=== PATIENT | male | born 1970 | race Caucasian/White ===

== ENCOUNTER 2017-05-07 18:22 | Inpatient (IN) | payer SELFPAY ==
[~2017-05-07] VITALS: Ht 162.6 cm; Wt 64.0 kg
[2017-05-07 18:27] VITALS: BP 122/95
--- NOTE | 2017-05-07 18:30 | NUR ---
Patient ambulated to bed 11. RN evaluating patient at bedside.
--- NOTE | 2017-05-07 18:32 | NUR ---
PT PRESENTS TO ER W/C/O SOB SINCE THIS AM AND C/O RIGHT HIP/LEG PAIN-NO FALL OR TRAUMA. HX HEART TRANSPLANT 2006 AT [place] [facility], PACEMAKER, HYPOTENSION. SKIN IS PINK/WARM/DRY; AAOX4 WITH EVEN AND STEADY GAIT; LUNGS CLEAR BL; PT DENIES ANY FEVER, CP, SOB, OR COUGH AT THIS TIME; PATIENT STATES PAIN OF 10/10 AT THIS TIME; PATIENT POSITIONED FOR COMFORT; HOB ELEVATED; BEDRAILS UP X2; BED DOWN. ER MD MADE AWARE OF PT STATUS.
--- NOTE | 2017-05-07 18:33 | NUR ---
Dr. Cevallos evaluating patient at bedside.
[2017-05-07] MEDS ORDERED: KETOROLAC 30 MG/ML VIAL IVP ONE (18:50)
--- NOTE | 2017-05-07 19:05 | NUR ---
Pt report given to ESPERANZA CASANOVA. Transfer of care at this time.
--- NOTE | 2017-05-07 19:08 | NUR ---
PLACED NO. 16 ECUADOREAN WU CATHETER WITH OUT DIFFICULTY IMMEDIATE RETURN OF SCANT YELLOW URINE.
--- NOTE | 2017-05-07 19:17 | NUR ---
Patient being evaluated by Dr. Vences at bedside.
--- NOTE | 2017-05-07 19:18 | NUR ---
Eboni gill in ED - 05/07/[address] at [address] Vences evaluating patient at bedside.
[2017-05-07 19:22] LABS: BASOPHILS # (AUTO) 0.3 K/uL (0.00-0.22); BASOPHILS % (AUTO) 2.9 % (0.0-2.0); EOSINOPHILS # (AUTO) 0.1 K/uL (0-0.4); EOSINOPHILS % (AUTO) 0.9 % (0.0-4.0); HEMATOCRIT 42.5 % (36-52); HEMOGLOBIN 14.4 g/dL (12.0-18.0); LYMPHOCYTES # (AUTO) 1.9 K/uL (2.0-11.5); LYMPHOCYTES % (AUTO) 21.8 % (20.5-51.1); MEAN CORPUSCULAR HEMOGLOBIN 30 pg (27-31); MEAN CORPUSCULAR HGB CONC 34 g/dL (33-37); MEAN CORPUSCULAR VOLUME 90 fL (80-94); MONOCYTES # (AUTO) 0.4 K/uL (0.8-1.0); MONOCYTES % (AUTO) 4.6 % (1.7-9.3); NEUTROPHILS # (AUTO) 6.1 K/uL (1.8-7.7); NEUTROPHILS % (AUTO) 69.8 % (42.2-75.2); PLATELET COUNT (AUTO) 118 K/uL (140-450); RED BLOOD CELL COUNT(AUTO) 4.72 MIL/uL (4.20-6.10); RED CELL DISTRIBUTION WIDTH 15.7 % (11.6-13.7); WHITE BLOOD COUNT (AUTO) 8.8 K/uL (4.8-10.8)
--- NOTE | 2017-05-07 19:22 | NUR ---
PT TAKEN TO CT VIA [facility].
[2017-05-07 19:32] LABS: ANION GAP 15.4 (8-16); CARBON DIOXIDE 26.4 mmol/L (21-32); CREATININE 1.9 mg/dL (0.7-1.3); POTASSIUM 3.8 mmol/L (3.5-5.1)
[2017-05-07 19:37] LABS: PROTHROMBIN TIME 10.9 secs (10.8-13.4)
[2017-05-07 19:38] LABS: TOTAL BILIRUBIN 0.8 mg/dL (0.0-1.0)
[2017-05-07] MEDS ORDERED: FURO-570 PO (19:59)
[2017-05-07] MEDS ORDERED: SULF-58 PO (19:59)
[2017-05-07] MEDS ORDERED: SIRO0.5T PO (19:59)
[2017-05-07] MEDS ORDERED: [UNRECOGNIZED DRUG - CODE] PO (19:59)
[2017-05-07] MEDS ORDERED: VAS2.5 PO (19:59)
[2017-05-07] MEDS ORDERED: PANT40EC PO (19:59)
[2017-05-07] MEDS ORDERED: ASPI81CT89 PO (19:59)
[2017-05-07] MEDS ORDERED: MYC10 PO (19:59)
[2017-05-07] MEDS ORDERED: ATOR40TA PO (19:59)
[2017-05-07] MEDS ORDERED: PRED5TAB7 PO (19:59)
[2017-05-07] MEDS ORDERED: CARV3.12 PO (19:59)
[2017-05-07] MEDS ORDERED: SAN25 PO (19:59)
[2017-05-07] MEDS ORDERED: [UNRECOGNIZED DRUG - CODE] PO (19:59)
--- NOTE | 2017-05-07 20:19 | NUR ---
PT IN BED WITH FAMILY AT BEDSIDE.
[2017-05-07] MEDS ORDERED: ASPIRIN 325 MG TAB PO ONE (20:20)
[2017-05-07 20:29] LABS: APPEARANCE,URINE CLEAR (CLEAR); BILIRUBIN,URINE NEGATIVE (NEGATIVE); BLOOD, URINE NEGATIVE (NEGATIVE); COLOR,URINE YELLOW (YELLOW); LEUKOCYTE ESTERASE ,URINE NEGATIVE (NEGATIVE); NITRITE, URINE NEGATIVE (NEGATIVE); UGLUCOSE NEGATIVE (NEGATIVE)
[2017-05-07] MEDS ORDERED: DOCUSATE SODIUM 100 MG GELCAP PO PRN (22:20)
[2017-05-07] MEDS ORDERED: ONDANSETRON 4 MG/2 ML VIAL IM/IVP PRN (22:20)
[2017-05-07] MEDS ORDERED: ACETAMINOPHEN 325 MG TAB PO PRN (22:20)
[2017-05-07] MEDS ORDERED: ASPIRIN 81 MG TAB.CHEW PO SCH (22:25)
[2017-05-07] MEDS ORDERED: NITROGLYCERIN 0.4 MG TAB SL PRN (22:25)
[2017-05-07] MEDS ORDERED: MORPHINE SULFATE 4 MG/ML SYR IVP ONE (22:35)
--- NOTE | 2017-05-07 22:56 | NUR ---
Patient will be admitted to care of TAMMY. Admited to TELE. Will go to [id number]. Belongings list completed. Report to
--- NOTE | 2017-05-07 23:00 | NUR ---
ADMITTED THIS 47 YEAR OLD MALE FROM ER PER ISAIAH WITH CC OF SOB AND RT HIP/LEG PAIN, ASSISTED TO BED, WITH RT LEG PAIN ON AMBULATION, ASSESSMENT DONE, VITAL SIGNS STABLE, NO SOB NOTED, STILL COMPLAINING OF RT LEG/HIP PAIN, MORPHINE GIVEN IN ER AT 2243 NOT WORKING, WILL CALL DR EVERETT, ORIENTED TO ROOM AND CALL LIGHT, SAFETY MEASURES IN PLACE, CALL LIGHT WITHIN REACH.
[2017-05-07 23:03] LABS: CHOL/HDL RATIO 3.6 (1-4.5); FREE T4 (FREE THYROXINE) 0.86 ng/dL (0.76-1.46); MAGNESIUM 1.3 mg/dL (1.8-2.4); PHOSPHORUS 3.8 mg/dL (2.5-4.9); THYROID STIMULATING HORMONE 8.69 uIU/mL (0.34-3.74)
[2017-05-07] MEDS: NACL 0.9% 1,000 ML IV SCH (23:14)
[2017-05-07 23:30] VITALS: BP 109/88
[2017-05-08] MEDS: HYDROcodone/APAP 7.5/325 MG 1 TAB PO PRN ×3 (00:42→18:10)
--- NOTE | 2017-05-08 00:45 | NUR ---
MEDICATED WITH NORCO FOR RT HIP/LEG PAIN, WILL REASSESS, MONITORED CLOSELY.
[2017-05-08] MEDS ORDERED: MAG SULF 2000 MG/WATER PREMIX 100 ML IV ONE (00:50)
--- NOTE | 2017-05-08 01:30 | NUR ---
MAG RIDER IVPB STARTED FOR MAG LEVEL OF 1.3, EDUCATION PROVIDED, PT VERBALIZED PAIN SUBSIDING, SANDWICH PROVIDED PER REQUEST, MONITORED CLOSELY.
--- NOTE | 2017-05-08 02:40 | NUR ---
ARTERIAL ULTRASOUND OF BLE DONE, TOLERATED, SCD'S APPLIED TO BLE ORDERED, MONITORED CLOSELY.
[2017-05-08] MEDS ORDERED: HEPARIN PER PHARMACY MC PRN (03:25)
[2017-05-08] MEDS ORDERED: hePARIN / DEXT 5% PREMIX 250 ML IV SCH ×2 (03:25→03:50)
[2017-05-08 04:00] VITALS: BP 99/77
--- NOTE | 2017-05-08 04:15 | NUR ---
HEPARIN 4,000 UNITS IVP BOLUS GIVEN, AND HEPARIN DRIP AT 800 UNITS/H STARTED, CALLED DR EVERETT TO ORDER PTT Q6H PER HEPARIN PROTOCOL, DENIES ANY PAIN, NO RESP DISTRESS NOTED, MONITORED CLOSELY.
--- NOTE | 2017-05-08 06:30 | NUR ---
SEEN PT SLEEPING, NO SIGNS OF DISTRESS, HEPARIN DRIP INFUSING AT 800 UNITS/H, MONITORED CLOSELY.
--- NOTE | 2017-05-08 06:40 | NUR ---
PATIENT HAS BEEN SCREENED AND CATEGORIZED MODERATE NUTRITION RISK. PATIENT WILL BE SEEN WITHIN 3-5 DAYS OF ADMISSION. 05/09/17-05/10/17 MARQUES CARTER MS, RDN Addendum: 05/09/17 at [address] CORRECTION TO DATE RANGE: 05/10/17 - 05/12/[address]
[2017-05-08 07:17] LABS: BASOPHILS # (AUTO) 0.2 K/uL (0.00-0.22); BASOPHILS % (AUTO) 1.9 % (0.0-2.0); EOSINOPHILS # (AUTO) 0.1 K/uL (0-0.4); HEMATOCRIT 41.4 % (36-52); LYMPHOCYTES # (AUTO) 1.5 K/uL (2.0-11.5); LYMPHOCYTES % (AUTO) 15.5 % (20.5-51.1); MEAN CORPUSCULAR HEMOGLOBIN 30 pg (27-31); MEAN CORPUSCULAR HGB CONC 34 g/dL (33-37); MEAN CORPUSCULAR VOLUME 89 fL (80-94); MONOCYTES # (AUTO) 1.2 K/uL (0.8-1.0); MONOCYTES % (AUTO) 11.9 % (1.7-9.3); NEUTROPHILS # (AUTO) 6.9 K/uL (1.8-7.7); NEUTROPHILS % (AUTO) 69.7 % (42.2-75.2); PLATELET COUNT (AUTO) 110 K/uL (140-450); RED BLOOD CELL COUNT(AUTO) 4.64 MIL/uL (4.20-6.10); RED CELL DISTRIBUTION WIDTH 15.9 % (11.6-13.7); WHITE BLOOD COUNT (AUTO) 9.9 K/uL (4.8-10.8)
--- NOTE | 2017-05-08 07:20 | NUR ---
PT AWAKE, DENIES ANY PAIN, REPORT GIVEN TO ESPERANZA MARIANO FOR CONTINUITY OF CARE.
--- NOTE | 2017-05-08 07:21 | NUR ---
RECEIVED REPORT FROM THE UNLOADER OPERATOR NURSE AT BEDSIDE FOR CONTINUITY OF CARE. PT IS AWAKE AND ORIENTED. PT V/S WITHIN NORMAL RANGE. DENIES PAIN AT THIS TIME. IV SITE AT R AC 22G NS INFUSING AT 60ML/HR, R HAND 22G INFUSING HEPARIN AT 800U. PT TOLERATING WELL. SKIN INTACT. BREATHING NORMAL. WU CATH IN PLACE, 150ML CLEAR YELLOW URINE IN BAG. SCD'S IN PLACE. REQUESTED MD TO ORDER ANOTHER PTT AT 1012 THEN Q6 THEREAFTER. WILL CONTINUE TO MONITOR PT.
[2017-05-08 07:29] LABS: ANION GAP 14.9 (8-16); CARBON DIOXIDE 23.8 mmol/L (21-32); POTASSIUM 3.7 mmol/L (3.5-5.1)
[2017-05-08 08:00] VITALS: BP 95/73
[2017-05-08] MEDS ORDERED: FUROSEMIDE 40 MG/4 ML VIAL IVP SCH (08:35)
[2017-05-08] MEDS ORDERED: ENALAPRIL 5 MG TAB PO SCH (09:00)
[2017-05-08] MEDS ORDERED: METOPROLOL 25 MG TAB PO SCH (09:00)
[2017-05-08] MEDS ORDERED: LISINOPRIL 10 MG TAB PO SCH (09:00)
[2017-05-08] MEDS ORDERED: FUROSEMIDE 40 MG TAB PO SCH (09:00)
[2017-05-08] MEDS: ASPIRIN 81 MG TAB.CHEW PO SCH (09:04)
[2017-05-08] MEDS: CARVEDILOL 3.125 MG TAB PO SCH (09:04)
[2017-05-08] MEDS: ATORVASTATIN 20 MG TAB PO SCH (09:04)
[2017-05-08] MEDS: TAMSULOSIN 0.4 MG CAP PO SCH (09:05)
[2017-05-08] MEDS: predniSONE 5 MG TAB PO SCH (09:05)
[2017-05-08] MEDS: CALCIUM CARB/VIT-D 500 MG/200 IU 1 TAB PO SCH (09:05)
[2017-05-08] MEDS: PANTOPRAZOLE 40 MG TABEC PO SCH (09:06)
[2017-05-08] MEDS: cycloSPORINE (MODIFIED) 25 MG CAPLF PO SCH (09:07)
--- NOTE | 2017-05-08 09:10 | NUR ---
ADMINISTERED MORNING MEDS. HELD BP MEDS D/T DECREASED BP. PT TOLERATED WELL. NO COMPLAINTS AT THIS TIME. WILL CONTINUE TO MONITOR PT.
--- NOTE | 2017-05-08 10:24 | NUR ---
US TECH HERE FOR VENOUS DOPPLER STUDY.
--- NOTE | 2017-05-08 10:25 | NUR ---
ORDER FOR D/C HEPARIN PER DR. YU . HEPARIN D/C'D.
--- NOTE | 2017-05-08 11:38 | NUR ---
DR. CHAO, DR. PRICE IN WITH THE PT. DISCUSSED THE REASON FOR THE PAIN IN HIS R LEG. NEED TO CONTACT HIS TRANSPLANT CLINIC. PER PT, CALL HIS SON AND HE CAN GIVE US INFORMATION RE CLINIC AND SURGEON. DR PRICE WILL CONTACT AND LET THE CLINIC KNOW WHAT'S GOING ON WITH PT AND SEE IF THEY HAVE ANY RECOMMENDATION FOR THIS PT. MEANWHILE, WE WILL CONTINUE W/ ASPIRIN AND STATINS. WILL CONTINUE TO MONITOR PT.
--- NOTE | 2017-05-08 11:59 | NUR ---
LAB CALLED WITH PTT RESULTS. 57.3. HEPARIN HAS BEEN D/C'D. CHECKED ON PT. NO SIGNS OR SX OF BLEEDING NOTED.
[2017-05-08 12:00] VITALS: BP 93/67
--- NOTE | 2017-05-08 12:29 | NUR ---
BP LOW 93/67. NOTIFIED DR CHAO AND ALBERT. OK TO HOLD LASIX.
[2017-05-08] MEDS: NACL 0.9% 1,000 ML IV SCH ×2 (14:57→22:22)
--- NOTE | 2017-05-08 16:00 | NUR ---
PT RESTING COMFORTABLY. NO SIGNS OF DISTRESS. V/S WITHIN NORMAL RANGE. WILL CONTINUE TO MONITOR PT.
[2017-05-08 16:11] VITALS: BP 85/53
--- NOTE | 2017-05-08 19:10 | NUR ---
ENDORSED PT TO THE WEIGHT LOSS SALES CONSULTANT NURSE AT BEDSIDE FOR CONTINUITY OF CARE. PT IS IN PAIN. NORCO HASN'T HELPED YET. ENDORSED THE KPAD TO USE AT BEDTIME. IT IS AT BEDSIDE. PT IN STABLE CONDITION.
--- NOTE | 2017-05-08 19:12 | NUR ---
RECEIVED PT ON BED, STILL WITH RT LEG/HIP PAIN, NO SOB NOTED, IVF RESUMED, K-PAD APPLIED TO RT LEG, WILL REASSESS EFFECTIVENESS, PLAN OF CARE DISCUSS, SAFETY MEASURES IN PLACE, CALL LIGHT WITHIN REACH.
[2017-05-08] MEDS: MORPHINE SULFATE 2 MG/ML SYR IVP PRN ×2 (19:26→23:18)
--- NOTE | 2017-05-08 19:27 | NUR ---
PT STILL IN SEVERE PAIN, VITAL SIGNS STABLE, BP-113/84, HR-116, MEDICATED PRN WITH MORPHINE IVP, MONITORED CLOSELY.
[2017-05-08 20:00] VITALS: BP 104/68
--- NOTE | 2017-05-08 20:00 | NUR ---
PT VERBALIZED PAIN SUBSIDING 09/27, VITAL SIGNS TAKEN, BP-104/68, HR-115, IVF INFUSING WELL, MONITORED CLOSELY.
--- NOTE | 2017-05-08 20:55 | NUR ---
DR EVERETT MADE AWARE THAT THERE IS A ONE TIME DOSE OF LASIX 20MG IVP AT 2100, BP-104/68, HR-115, SHE WILL LOOK INTO IT AND GET BACK TO ME, PT SLEEPING AT THIS TIME, NO DISTRESS NOTED.
[2017-05-08] MEDS ORDERED: FUROSEMIDE 20 MG/2 ML VIAL IVP SCH (21:00)
[2017-05-08] MEDS ORDERED: SIMVASTATIN 20 MG TAB PO SCH (21:00)
[2017-05-08 21:40] VITALS: BP 91/69
--- NOTE | 2017-05-08 21:40 | NUR ---
DR EVERETT CALLED BACK AND SAID TO GIVE LASIX 20MG IVP ONE TIME DOSE SINCE BP WENT UP, BP RECHECKED BEFORE GIVING THE LASIX 91/69 HR-118, DR EVERETT MADE AWARE, ASKING FOR MAP WHICH IS 80, SAID IT'S SYBIL TO GIVE LASIX.
--- NOTE | 2017-05-08 21:47 | NUR ---
DR EVERETT CALLED BACK AND SAID DON'T GIVE THE LASIX, LASIX HOLD FOR NOW, PT EATING DINNER AT THIS TIME, NO DISTRESS NOTED, MONITORED CLOSELY.
[2017-05-09] VITALS: BP 108/71
--- NOTE | 2017-05-09 | NUR ---
PT SEEN WITH EYES CLOSED, EASILY AROUSABLE, VITAL SIGNS STABLE, NO SOB NOTED, VERBALIZED RT LEG PAIN SUBSIDING, IVF INFUSING WELL, WU CATHETER DRAINING YELLOW URINE,
[2017-05-09] MEDS: HYDROcodone/APAP 7.5/325 MG 1 TAB PO PRN ×4 (01:56→20:55)
--- NOTE | 2017-05-09 01:56 | NUR ---
COMPLAINING OF RT LEG PAIN, MEDICATED WITH NORCO, MONITORED CLOSELY.
[2017-05-09] MEDS: MORPHINE SULFATE 2 MG/ML SYR IVP PRN ×3 (03:30→09:42)
--- NOTE | 2017-05-09 03:30 | NUR ---
PAIN UNRELIEVED BY NORCO, 9/10 PAIN LEVEL AT THIS TIME, BP-107/75, HR-119, MEDICATED PRN WITH MORPHINE IVP, MONITORED CLOSELY.
[2017-05-09 04:00] VITALS: BP 105/79
--- NOTE | 2017-05-09 05:16 | NUR ---
PT SEEN GRIMACING, WITH RT LEG PAIN 01/27, BP-106/79, HR-120, DR EVERETT MADE AWARE, WILL FOLLOW UP.
--- NOTE | 2017-05-09 06:28 | NUR ---
COMPLAINING OF RT LEG PAIN 03/29, BP-112/85. HR-122, MEDICATED PRN WITH MORPHINE IVP, MONITORED CLOSELY.
[2017-05-09 06:57] LABS: BASOPHILS # (AUTO) 0.2 K/uL (0.00-0.22); BASOPHILS % (AUTO) 1.6 % (0.0-2.0); EOSINOPHILS # (AUTO) 0.1 K/uL (0-0.4); EOSINOPHILS % (AUTO) 0.8 % (0.0-4.0); HEMATOCRIT 44.1 % (36-52); HEMOGLOBIN 14.7 g/dL (12.0-18.0); LYMPHOCYTES # (AUTO) 1.7 K/uL (2.0-11.5); LYMPHOCYTES % (AUTO) 14.8 % (20.5-51.1); MEAN CORPUSCULAR HEMOGLOBIN 30 pg (27-31); MEAN CORPUSCULAR HGB CONC 33 g/dL (33-37); MEAN CORPUSCULAR VOLUME 90 fL (80-94); MONOCYTES # (AUTO) 1.2 K/uL (0.8-1.0); MONOCYTES % (AUTO) 10.7 % (1.7-9.3); NEUTROPHILS # (AUTO) 8.2 K/uL (1.8-7.7); NEUTROPHILS % (AUTO) 72.1 % (42.2-75.2); PLATELET COUNT (AUTO) 109 K/uL (140-450); RED BLOOD CELL COUNT(AUTO) 4.89 MIL/uL (4.20-6.10); RED CELL DISTRIBUTION WIDTH 15.7 % (11.6-13.7); WHITE BLOOD COUNT (AUTO) 11.4 K/uL (4.8-10.8)
--- NOTE | 2017-05-09 07:15 | NUR ---
RECEIVED PATIENT REPORT AT BEDSIDE. PATIENT AWAKE, ALERT AND ORIENTED. PATIENT REPORTS OF 10/10 RIGHT LEG PAIN. WILL MEDICATE. IV LINE NOTED TO THE RIGHT HAND WITH IVF INFUSING WELL. PATIENT ON TELE MONITORING. BED LOWERED WITH CALL LIGHT WITHIN REACH. WILL CONTINUE TO MONITOR
--- NOTE | 2017-05-09 07:21 | NUR ---
PT AWAKE, STILL IN PAIN, REPORT GIVEN TO ESPERANZA URBAN FOR CONTINUITY OF CARE.
[2017-05-09 07:25] LABS: ANION GAP 18.1 (8-16); CARBON DIOXIDE 20.4 mmol/L (21-32); CREATININE 1.6 mg/dL (0.7-1.3); POTASSIUM 4.5 mmol/L (3.5-5.1)
[2017-05-09 07:31] LABS: MAGNESIUM 2.2 mg/dL (1.8-2.4); PHOSPHORUS 3.7 mg/dL (2.5-4.9)
[2017-05-09] MEDS: NACL 0.9% 1,000 ML IV SCH ×2 (07:37→16:17)
[2017-05-09 07:53] VITALS: BP 120/84
[2017-05-09] MEDS ORDERED: HEPARIN PER PHARMACY MC PRN (08:05)
[2017-05-09] MEDS: TAMSULOSIN 0.4 MG CAP PO SCH (08:10)
[2017-05-09] MEDS: cycloSPORINE (MODIFIED) 25 MG CAPLF PO SCH (08:10)
[2017-05-09] MEDS: CALCIUM CARB/VIT-D 500 MG/200 IU 1 TAB PO SCH (08:10)
[2017-05-09] MEDS: ATORVASTATIN 20 MG TAB PO SCH (08:11)
[2017-05-09] MEDS: PANTOPRAZOLE 40 MG TABEC PO SCH (08:11)
[2017-05-09] MEDS: CARVEDILOL 3.125 MG TAB PO SCH (08:11)
[2017-05-09] MEDS: ASPIRIN 81 MG TAB.CHEW PO SCH (08:11)
[2017-05-09] MEDS: predniSONE 5 MG TAB PO SCH (08:12)
[2017-05-09] MEDS: hePARIN / DEXT 5% PREMIX 250 ML IV SCH (10:33)
--- NOTE | 2017-05-09 10:50 | NUR ---
PATIENT LEFT FOR CT ANGIO OF LOWER EXTREMITIES
[2017-05-09] MEDS ORDERED: HYDROmorphone 1 MG/ML AMP IVP PRN (11:40)
[2017-05-09 12:00] VITALS: BP 128/96
--- NOTE | 2017-05-09 12:57 | NUR ---
CT ANGIO OF LOWER EXTREMITIES RESULTS REPORTED TO DR MILES
--- NOTE | 2017-05-09 14:42 | NUR ---
CM NOTE FAXED INQUIRY INCLUDING ATTENDING PHYSICIAN'S CONTACT NUMBER AND NUMBER TO THE CHARGE NURSE TO THE NURSING FLOOR WHERE PATIENT IS TO [facility] [phone] PH# [phone] AND TO [facility] [phone] SPOKE TO TAZ OF [facility] PH# [phone] AND HE SAID THEY NEED A DOCTOR TO DOCTOR REPORT BEFORE THEY CAN ACCEPT. DR. MILES AND DR. Solis MIRANDA AWARE. RECEIVED CALL FROM BRITT OF [facility] PH# [phone] AND SHE SAID THEY ARE STILL WORKING TO SPEAK WITH THEIR DOCTOR IF THEY CAN ACCEPT. CHARGE NURSE AIME GAONA.
[2017-05-09 16:00] VITALS: BP 124/87
[2017-05-09] MEDS: HYDROmorphone PFS 2 MG/ML SYR IVP PRN ×3 (16:17→22:29)
[2017-05-09 16:33] LABS: BASOPHILS # (AUTO) 0.1 K/uL (0.00-0.22); BASOPHILS % (AUTO) 0.9 % (0.0-2.0); EOSINOPHILS % (AUTO) 0.2 % (0.0-4.0); HEMATOCRIT 45.2 % (36-52); HEMOGLOBIN 14.8 g/dL (12.0-18.0); LYMPHOCYTES # (AUTO) 0.6 K/uL (2.0-11.5); MEAN CORPUSCULAR HEMOGLOBIN 30 pg (27-31); MEAN CORPUSCULAR HGB CONC 33 g/dL (33-37); MEAN CORPUSCULAR VOLUME 90 fL (80-94); MONOCYTES # (AUTO) 0.8 K/uL (0.8-1.0); MONOCYTES % (AUTO) 6.1 % (1.7-9.3); NEUTROPHILS # (AUTO) 12.4 K/uL (1.8-7.7); NEUTROPHILS % (AUTO) 88.8 % (42.2-75.2); PLATELET COUNT (AUTO) 122 K/uL (140-450); RED BLOOD CELL COUNT(AUTO) 5.01 MIL/uL (4.20-6.10); RED CELL DISTRIBUTION WIDTH 16.3 % (11.6-13.7); WHITE BLOOD COUNT (AUTO) 13.9 K/uL (4.8-10.8)
[2017-05-09 16:36] LABS: PROTHROMBIN TIME 11.4 secs (10.8-13.4)
--- NOTE | 2017-05-09 16:53 | NUR ---
PTT 84.8. HEP DRIP ADJUSTED PER PROTOCOL
--- NOTE | 2017-05-09 19:28 | NUR ---
PATIENT REPORT GIVEN AT BEDSIDE. PATIENT ENDORSED IN STABLE CONDITION
--- NOTE | 2017-05-09 19:29 | NUR ---
PATIENT REPORT RECEIVED FROM MORNING NURSE AT BEDSIDE. PATIENT IS AWAKE, ALERT, AND ORIENTED. NO SIGNS AND SYMPTOMS OF DISTRESS NOTED. PATIENT ON ROOM AIR. IV SITE ON RIGHT ARM WITH HEPARIN DRIP RUNNING ON 700 UNITS/HR. IV SITE NOTED ON LEFT AC, WITH IVF NS RUNNING AT 60ML/HR. WU CATHETER IN PLACE DRAINING YELLOW URINE. AND K PAD BEING USED ON LOWER EXTREMETIES. BED IN LOWEST POSITION, SIDE RAILS UP AND CALL LIGHT WITHIN REACH. WILL CONTINUE TO MONITOR.
[2017-05-09 20:00] VITALS: BP 114/82
--- NOTE | 2017-05-09 20:47 | NUR ---
TRIED TO FAX COPY OF INSURANCE TO [facility] FAX #[phone].BUT NO RESPONDS.CALLED MELINA AT [phone] OPTION 3.SHE SAID OUR FAX IS OK BUT ASKED ME THE INSURANCE #.GAVE IT TO HER.SHE SUPPOSE TO CHECK HIS INSURANCE AND CALLED ME BACK.SHE DIDN'T CALL BACK.AT 2030 CALLED HER BACK AND SHE SAID .PT'S INSURANCE IS ON HOLD FOR SOME REASON AND WE CAN NOT TRANSFER PT NOW.LEFT MESSAGE FOR MORNING SHOW HOST TO F/U IN AM.ALSO NOTIFY RESIDENT .
--- NOTE | 2017-05-09 23:20 | NUR ---
PTT 58.8. PER HEPARIN DRIP PROTOCOL, NO CHANGE. WILL CONTINUE TO RUN AT 700UNITS/HR
--- NOTE | 2017-05-09 23:54 | NUR ---
[facility] CALLED REGARDING PATIENT TRANSFER. THEY SAID THAT THEY DO NOT HAVE A ROOM FOR TONIGHT. BUT THEY WILL CALL AGAIN TO FOLLOW UP TOMORROW.
[2017-05-10] VITALS: BP 109/83
--- NOTE | 2017-05-10 00:19 | NUR ---
CHECKED ON PATIENT. PATIENT IS ASLEEP. NO SIGNS AND SYMPTOMS OF DISTRESS NOTED. BREATHING EVEN AND UNLABORED. BED IN LOWEST POSITION, SIDE RAILS UP AND CALL LIGHT WITHIN REACH. WILL CONTINUE TO MONITOR.
[2017-05-10] MEDS: HYDROmorphone PFS 2 MG/ML SYR IVP PRN ×2 (01:38→06:15)
--- NOTE | 2017-05-10 02:16 | NUR ---
CHECKED ON PATIENT. PATIENT IS ASLEEP. NO SIGNS AND SYMPTOMS OF DISTRESS NOTED. BED IN LOWEST POSITION, SIDE RAILS UP AND CALL LIGHT WITHIN REACH. WILL CONTINUE TO MONITOR.
--- NOTE | 2017-05-10 03:42 | NUR ---
PATIENT STATED THAT HE "ACCIDENTALLY PULLED OUT" IV SITE. CANNULA IS INTACT. NEW IV SITE INSERTED ON LEFT FOREARM, 22 GAUGE.
[2017-05-10 04:00] VITALS: BP 104/76
--- NOTE | 2017-05-10 05:00 | NUR ---
PTT IS 27.6. HEPARIN PROTOCOL FOLLOWED, BOLUS GIVEN ORDERED. HEPARIN DRIP ADJUSTED TO 1000 UNITS/HR
[2017-05-10] MEDS: hePARIN / DEXT 5% PREMIX 250 ML IV SCH ×3 (05:05→14:45)
[2017-05-10 05:12] LABS: BASOPHILS # (AUTO) 0.1 K/uL (0.00-0.22); BASOPHILS % (AUTO) 0.9 % (0.0-2.0); EOSINOPHILS # (AUTO) 0.1 K/uL (0-0.4); EOSINOPHILS % (AUTO) 0.5 % (0.0-4.0); HEMATOCRIT 46.1 % (36-52); LYMPHOCYTES # (AUTO) 1.2 K/uL (2.0-11.5); LYMPHOCYTES % (AUTO) 8.8 % (20.5-51.1); MEAN CORPUSCULAR HEMOGLOBIN 30 pg (27-31); MEAN CORPUSCULAR HGB CONC 33 g/dL (33-37); MEAN CORPUSCULAR VOLUME 91 fL (80-94); MONOCYTES # (AUTO) 1.8 K/uL (0.8-1.0); MONOCYTES % (AUTO) 13.5 % (1.7-9.3); NEUTROPHILS # (AUTO) 10.2 K/uL (1.8-7.7); NEUTROPHILS % (AUTO) 76.3 % (42.2-75.2); PLATELET COUNT (AUTO) 117 K/uL (140-450); RED BLOOD CELL COUNT(AUTO) 5.09 MIL/uL (4.20-6.10); RED CELL DISTRIBUTION WIDTH 16.7 % (11.6-13.7); WHITE BLOOD COUNT (AUTO) 13.4 K/uL (4.8-10.8)
[2017-05-10 06:37] LABS: CREATININE 1.5 mg/dL (0.7-1.3)
[2017-05-10 06:43] LABS: POTASSIUM 5.5 mmol/L (3.5-5.1)
[2017-05-10 06:46] LABS: MAGNESIUM 2.3 mg/dL (1.8-2.4); PHOSPHORUS 4.3 mg/dL (2.5-4.9)
[2017-05-10 07:08] LABS: ANION GAP 19.5 (8-16)
--- NOTE | 2017-05-10 07:14 | NUR ---
PATIENT REPORT GIVEN TO MORNING NURSE. PATIENT IS IN STABLE CONDITION
--- NOTE | 2017-05-10 07:15 | NUR ---
RECEIVED PATIENT REPORT AT BEDSIDE. PATIENT AWAKE AND ALERT. NO SOB NOTED. PATIENT REPORTS 10/10 PAIN ON HIS RIGHT LEG. PATIENT WAS MEDICATED WILL CONTINUE TO MONITOR. HEPARIN DRIP RUNNING AT 1000UNITS/HR ON THE LEFT FOREARM, IVF INFUSING WELL ON THE LEFT AC. WU CATHETER IN PLACE, DRAINING LIGHT MARY URINE. PATIENT ON TELE MONITORING. BED LOWERED WITH CALL LIGHT WITHIN REACH. WILL CONTINUE TO MONITOR
[2017-05-10 08:00] VITALS: BP 111/83
--- NOTE | 2017-05-10 08:43 | NUR ---
CM CARTER SPOKE WITH SALES ORDER PROCESSOR NELDA TO VERIFY PATIENT'S INSURANCE AND SHE SAID PATIENT'S MEDI-REG IS ON HOLD AND PATIENT IS CURRENTLY SELF-PAY. PER NELDA, SHE WILL NOTIFY NANDINI TO WORK ON PATIENT'S MEDI-REG.
[2017-05-10] MEDS: ATORVASTATIN 20 MG TAB PO SCH (08:46)
[2017-05-10] MEDS: ASPIRIN 81 MG TAB.CHEW PO SCH (08:47)
[2017-05-10] MEDS: CALCIUM CARB/VIT-D 500 MG/200 IU 1 TAB PO SCH (08:47)
[2017-05-10] MEDS: TAMSULOSIN 0.4 MG CAP PO SCH (08:47)
[2017-05-10] MEDS: HYDROcodone/APAP 7.5/325 MG 1 TAB PO PRN (08:47)
[2017-05-10] MEDS: cycloSPORINE (MODIFIED) 25 MG CAPLF PO SCH (08:48)
[2017-05-10] MEDS: predniSONE 5 MG TAB PO SCH (08:48)
[2017-05-10] MEDS: CARVEDILOL 3.125 MG TAB PO SCH (08:48)
[2017-05-10] MEDS: NACL 0.9% 1,000 ML IV SCH (08:48)
[2017-05-10] MEDS: PANTOPRAZOLE 40 MG TABEC PO SCH (08:48)
--- NOTE | 2017-05-10 09:13 | NUR ---
CM NOTE RECEIVED CALL FROM JUANIS OF [facility] PH# [phone] AND HE WAS CONFIRMING IF PATIENT'S MEDI-REG IS NOT ACTIVE. I INFORMED HIM THAT OUR LOLLYPOP MACHINE OPERATOR HAS CONTACTED OUR MEDI-REG BARNWORKER GRO[employer] AND IS WORKING ON GETTING PATIENT'S MEDI-REG REINSTATED. PER JUANIS, NO BED AVAILABLE AT THIS TIME.
[2017-05-10] MEDS: HYDROmorphone PFS 4 MG/ML SYR IVP PRN ×3 (10:08→23:26)
[2017-05-10 12:00] VITALS: BP 118/77
--- NOTE | 2017-05-10 13:35 | NUR ---
PTT 109.4. HEPARIN DRIP STOPPED
--- NOTE | 2017-05-10 13:38 | NUR ---
PATIENT ASLEEP IN BED. NO S/S OF DISTRESS NOTED
--- NOTE | 2017-05-10 13:55 | NUR ---
CM NOTE SPOKE WITH MELINA Hernandez OF [facility] PH# [phone] OPTION 3. I INFORMED MELINA THAT OUR [facility] MAKER IS WORKING ON REINSTATING PATIENT'S MEDI-REG. PER MELINA, [facility] DOES NOT TAKE [facility] MEDI-REG AND IF PATIENT'S MEDI-REG GETS REINSTATED, [facility] WOULD NEED A LETTER OF AGREEMENT FROM [facility] SENT TO [facility] OFFICE: GEORGE RIVAS PH# [phone]. INQUIRY FAXED TO [facility] [phone]. SPOKE WITH COLBY OF [facility] PH# [phone] AND SHE SAID THAT NO BEDS AVAILABLE AT THIS TIME. DR. MILES AWARE.
--- NOTE | 2017-05-10 14:45 | NUR ---
HEPARIN DRIP RESUMED AT 800UNITS/HR. PATIENT ASLEEP. NO S/S OF DISTRESS NOTED
[2017-05-10 16:00] VITALS: BP 101/76
--- NOTE | 2017-05-10 19:00 | NUR ---
PATIENT REPORT GIVEN AT BEDSIDE. PATIENT ENDORSED IN STABLE CONDITION
--- NOTE | 2017-05-10 19:05 | NUR ---
PATIENT REPORT RECEIVED AT BEDSIDE FROM MORNING NURSE. PATIENT IS AWAKE, ALERT, AND ORIENTED. NO SIGNS AND SYMPTOMS OF DISTRESS NOTED. NO COMPLAINTS OF PAIN AT THIS TIME. IV SITE NOTED ON LEFT FOREARM, WITH HEPARIN DRIP CONTINUOUSLY RUNNING AT 800 UNITS/HR. IV SITE LEFT AC WITH NS RUNNING AT 60ML/HR. WU CATHETER IN PLACE. BED IN LOWEST POSITION, SIDE RAILS UP AND CALL LIGHT WITHIN REACH. WILL CONTINUE TO MONITOR.
[2017-05-10] MEDS ORDERED: SODIUM POLYSTYRENE 15 GM/60 ML UDBTL PO SCH (19:20)
[2017-05-10 20:00] VITALS: BP 101/75
--- NOTE | 2017-05-10 20:20 | NUR ---
PTT 54.6. PER HEPARIN DRIP PROTOCOL, NO CHANGE TO RATE. HEPARIN DRIP TO CONTINUE AT 800 UNITS/HR.
[2017-05-10 20:28] LABS: PROTHROMBIN TIME 13.2 secs (10.8-13.4)
--- NOTE | 2017-05-10 22:01 | NUR ---
PT SEEN BY DR. XIONG
[2017-05-11] VITALS (7 sets, daily range): BP systolic 98–123; BP diastolic 68–86
--- NOTE | 2017-05-11 02:20 | NUR ---
PATIENT'S PTT IS 53.8. PER HEPARIN DRIP PROTOCOL, NO CHANGE TO RATE. WILL CONTINUE AT 800 UNITS/HOUR.
[2017-05-11] MEDS: HYDROmorphone PFS 4 MG/ML SYR IVP PRN ×6 (02:32→21:47)
--- NOTE | 2017-05-11 07:15 | NUR ---
RECEIVED PATIENT REPORT AT BEDSIDE. PATIENT AWAKE, ALERT AND ORIENTED. NO S/S OF DISTRESS NOTED. HEPARIN DRIP INFUSING AT 800 UNITS/HR. PATIENT REPORTS OF 10/10 RIGHT LEG PAIN. PATIENT WAS MEDICATED. WILL CONTINUE TO MONITOR. WU CATHETER IN PLACE, DRAINING DARK URINE. PATIENT ON TELE MONITORING. BED LOWERED WITH CALL LIGHT WITHIN REACH. WILL CONTINUE TO MONITOR
--- NOTE | 2017-05-11 07:16 | NUR ---
PATIENT REPORT GIVEN TO MORNING NURSE AT BEDSIDE. PATIENT IS IN STABLE CONDITION.
[2017-05-11 07:26] LABS: CARBON DIOXIDE 24.5 mmol/L (21-32); CREATININE 1.3 mg/dL (0.7-1.3); POTASSIUM 4.5 mmol/L (3.5-5.1)
[2017-05-11 07:42] LABS: MAGNESIUM 2.1 mg/dL (1.8-2.4); PHOSPHORUS 2.8 mg/dL (2.5-4.9)
[2017-05-11 07:43] LABS: HEMATOCRIT 44.1 % (36-52); MEAN CORPUSCULAR HEMOGLOBIN 31 pg (27-31); MEAN CORPUSCULAR VOLUME 92 fL (80-94); RED BLOOD CELL COUNT(AUTO) 4.82 MIL/uL (4.20-6.10); WHITE BLOOD COUNT (AUTO) 13.1 K/uL (4.8-10.8)
[2017-05-11 07:44] LABS: BASOPHILS % (AUTO) 0.2 % (0.0-2.0); EOSINOPHILS % (AUTO) 0.2 % (0.0-4.0); LYMPHOCYTES # (AUTO) 1.4 K/uL (2.0-11.5); LYMPHOCYTES % (AUTO) 10.4 % (20.5-51.1); MEAN CORPUSCULAR HGB CONC 34 g/dL (33-37); MONOCYTES # (AUTO) 1.8 K/uL (0.8-1.0); MONOCYTES % (AUTO) 13.4 % (1.7-9.3); NEUTROPHILS % (AUTO) 75.8 % (42.2-75.2); PLATELET COUNT (AUTO) 111 K/uL (140-450); RED CELL DISTRIBUTION WIDTH 17.1 % (11.6-13.7)
[2017-05-11] MEDS: CARVEDILOL 3.125 MG TAB PO SCH (08:33)
[2017-05-11] MEDS: HYDROcodone/APAP 7.5/325 MG 1 TAB PO PRN ×3 (08:33→23:58)
[2017-05-11] MEDS: ATORVASTATIN 20 MG TAB PO SCH (08:33)
[2017-05-11] MEDS: PANTOPRAZOLE 40 MG TABEC PO SCH (08:34)
[2017-05-11] MEDS: CALCIUM CARB/VIT-D 500 MG/200 IU 1 TAB PO SCH (08:34)
[2017-05-11] MEDS: ASPIRIN 81 MG TAB.CHEW PO SCH (08:34)
[2017-05-11] MEDS: predniSONE 5 MG TAB PO SCH (08:34)
[2017-05-11] MEDS: TAMSULOSIN 0.4 MG CAP PO SCH (08:34)
[2017-05-11] MEDS: cycloSPORINE (MODIFIED) 25 MG CAPLF PO SCH (08:35)
[2017-05-11] MEDS ORDERED: FUROSEMIDE 20 MG/2 ML VIAL IVP SCH (09:00)
[2017-05-11] MEDS: NACL 0.9% 1,000 ML IV SCH (10:59)
--- NOTE | 2017-05-11 11:30 | NUR ---
PATIENT ASLEEP IN BED. NO S/S OF DISTRESS NOTED
--- NOTE | 2017-05-11 12:13 | NUR ---
CM NOTE SPOKE WITH MIKAYLA FROM [facility] ADMISSIONS PH# [phone] AND SHE SAID TO FAX PATIENT'S FACE SHEET. FAXED PATIENT'S FACESHEET TO [facility] [phone] ATTN: MIKAYLA
--- NOTE | 2017-05-11 13:24 | NUR ---
FILEMON AMCHADO SPOKE WITH MIKAYLA OF [facility] ADMISSIONS PH# [phone] AND SHE SAID SHE IS WAITING TO HEAR IF THEY WILL HAVE AN ADMITTING PHYSICIAN AND ACCEPTING VASCULAR SURGEON. SPOKE WITH [facility] PH# [phone] AND HE SAID THAT THEY HAVE A TELE BED AVAILABLE AND THEY HAVE A VASCULAR SURGEON BUT IN ORDER FOR THEM TO BE ABLE TO ACCEPT PATIENT, PATIENT HAS TO HAVE AN ADMITTING PHYSICIAN AND ACCEPTING VASCULAR SURGEON. SPOKE WITH [facility] OF [facility] PH# [phone] AND HE SAID THAT THEY ONLY HAVE ONE VASCULAR SURGEON THERE, DR. LINTON, AND HE IS NOT SURE IF HE WILL ACCEPT PATIENT. I ASKED HIM IF HE HAS THE DOCTOR'S NUMBER, HE SAID HE DOES NOT HAVE IT AT THIS TIME AND WILL HAVE TO LOOK FOR IT. I GAVE [facility] ADMISSIONS MIKAYLA, [facility], AND [facility] THE NUMBER TO THE CHARGE NURSE OF THE NURSING FLOOR WHERE PATIENT IS AND DR. MILES'S NUMBER IN CASE IT HAPPENS AT A LATER TIME TODAY. FILEMON MENDEZ, DR. MILES AND CHARGE NURSE ANTIONE BARRAZA
--- NOTE | 2017-05-11 14:00 | NUR ---
INSURANCE PAPERS BROUGHT IN BY GIVEN TO ADMITTING PERSONNELNELDA
[2017-05-11] MEDS: hePARIN / DEXT 5% PREMIX 250 ML IV SCH (19:13)
--- NOTE | 2017-05-11 19:25 | NUR ---
PATIENT REPORT GIVEN AT BEDSIDE. PATIENT ENDORSED IN STABLE CONDITION
--- NOTE | 2017-05-11 19:26 | NUR ---
PATIENT REPORT RECEIVED FROM MORNING NURSE. PATIENT IS AWAKE, ALERT AND ORIENTED. NO SIGNS AND SYMPTOMS OF DISTRESS NOTED. NO COMPLAINTS OF PAIN AT THIS TIME. IV SITE NOTED ON LEFT FOREARM WITH HEPARIN DRIP ONGOING AT 800UNITS/HR. IV SITE AT LEFT AC WITH IVF NS INFUSING WELL AT 60ML/HR. WU CATHETER IN PLACE DRAINING MARY COLORED URINE. BED IN LOWEST POSITION, SIDE RAILS UP AND CALL LIGHT WITHIN REACH. WILL CONTINUE TO MONITOR.
[2017-05-12] VITALS: BP 118/83
[2017-05-12] MEDS: HYDROmorphone PFS 4 MG/ML SYR IVP PRN ×5 (00:51→16:03)
[2017-05-12] MEDS: NACL 0.9% 1,000 ML IV SCH ×2 (02:17→14:10)
--- NOTE | 2017-05-12 02:52 | NUR ---
PTT IS 49.0. PER HEPARIN DRIP PROTOCOL, NO CHANGE TO RATE. WILL CONTINUE TO RUN HEPARIN DRIP AT 800 UNITS/HR.
[2017-05-12 04:00] VITALS: BP 127/81
--- NOTE | 2017-05-12 05:00 | NUR ---
NOTIFIED DOCTOR OF PATIENTS ELEVATED HEART RATE
[2017-05-12 07:05] LABS: BASOPHILS # (AUTO) 0.1 K/uL (0.00-0.22); BASOPHILS % (AUTO) 0.6 % (0.0-2.0); EOSINOPHILS % (AUTO) 0.2 % (0.0-4.0); HEMATOCRIT 44.9 % (36-52); HEMOGLOBIN 14.9 g/dL (12.0-18.0); LYMPHOCYTES # (AUTO) 0.9 K/uL (2.0-11.5); LYMPHOCYTES % (AUTO) 4.8 % (20.5-51.1); MEAN CORPUSCULAR HEMOGLOBIN 30 pg (27-31); MEAN CORPUSCULAR HGB CONC 33 g/dL (33-37); MEAN CORPUSCULAR VOLUME 90 fL (80-94); MONOCYTES # (AUTO) 2.8 K/uL (0.8-1.0); MONOCYTES % (AUTO) 14.8 % (1.7-9.3); NEUTROPHILS % (AUTO) 79.6 % (42.2-75.2); PLATELET COUNT (AUTO) 122 K/uL (140-450); RED BLOOD CELL COUNT(AUTO) 4.99 MIL/uL (4.20-6.10); RED CELL DISTRIBUTION WIDTH 16.5 % (11.6-13.7)
--- NOTE | 2017-05-12 07:12 | NUR ---
PATIENT REPORT GIVEN TO MORNING NURSE AT BEDSIDE. PATIENT IS IN STABLE CONDITION
--- NOTE | 2017-05-12 07:13 | NUR ---
RECEIVED PT IN BED. AWAKE. ALERT ORIENTEDX4. NO SOB NOTED. DENIES ANY PAIN OR DISCOMFORT AT THIS TIME. PT ON BEDREST. SAFETY PRECAUTION IN PLACE. CALL LIGHT WITHIN REACH.
[2017-05-12 07:20] LABS: ANION GAP 14.1 (8-16); CREATININE 1.3 mg/dL (0.7-1.3); POTASSIUM 4.1 mmol/L (3.5-5.1)
[2017-05-12 07:45] LABS: WHITE BLOOD COUNT (AUTO) 18.8 K/uL (4.8-10.8)
--- NOTE | 2017-05-12 07:55 | NUR ---
DR. MILES MADE AWARE OF EKG READING RUNNING V-TACH HR 135. TO SEE PT.
[2017-05-12 08:00] VITALS: BP 123/82
[2017-05-12] MEDS: TAMSULOSIN 0.4 MG CAP PO SCH (08:20)
[2017-05-12] MEDS: ATORVASTATIN 20 MG TAB PO SCH (08:20)
[2017-05-12] MEDS: ASPIRIN 81 MG TAB.CHEW PO SCH (08:21)
[2017-05-12] MEDS: CALCIUM CARB/VIT-D 500 MG/200 IU 1 TAB PO SCH (08:21)
[2017-05-12] MEDS: predniSONE 5 MG TAB PO SCH (08:21)
[2017-05-12] MEDS: PANTOPRAZOLE 40 MG TABEC PO SCH (08:22)
[2017-05-12] MEDS: cycloSPORINE (MODIFIED) 25 MG CAPLF PO SCH (08:29)
[2017-05-12] MEDS ORDERED: predniSONE 10 MG TAB PO SCH (09:00)
[2017-05-12] MEDS ORDERED: CARVEDILOL 6.25 MG TAB PO SCH (09:00)
[2017-05-12] MEDS: HYDROcodone/APAP 7.5/325 MG 1 TAB PO PRN ×2 (10:07→20:18)
--- NOTE | 2017-05-12 10:34 | NUR ---
FAMILY OF PT WOULD WANT TO SPEAK WITH DR. MILES REGARDING PT TRANSFER. MADE AWARE AND TO SEE PT.
--- NOTE | 2017-05-12 11:00 | NUR ---
DR. MIRANDA CAME TO SPEAK WITH PT. WITH RN SINGAPOREAN SPEAKER. PER PT HE REFUSES SURGERY AND AMPUTATION OF RIGHT LEG. DR. MIRANDA EXPLAINED TO PT RISKS, DUE TO POOR CIRCULATION TO RIGHT LEG. PT VERBALIZED THAT HE WANTS TO GET TRANSFERRED TO [facility]. PER DR. MIRANDA THERE IS NO ROOM YET FOR TRANSFER. PER PT REPORT HE GOT ADMITTED RIGHT AWAY TO [facility] BEFORE AND ASKED MD TO TRANSFER HIM. DR. MILES FAXED REQUEST TO [facility]. CONFIRMATION RECEIVED AND CALL RECEIVED FROM SRI FROM [facility]ER [facility] [place]. TRANSFERRED CALL TO RESIDENT. FAMILY MOSES, AND DUGLAS WITH PT.
[2017-05-12 12:00] VITALS: BP 100/70
[2017-05-12] MEDS: PIPER/TAZO 3.375GM/D5W PREMIX 50 ML IV SCH ×2 (12:00→17:42)
--- NOTE | 2017-05-12 12:30 | NUR ---
CALLED PHARMACY REGARDING DILAUDID ORDER THAT WHEN SCANNED IT SAYS NDC NUMBER UNKNOWN. PER PHARMACIST OK TO DO MANUAL BARCODE FOR NOW.
[2017-05-12 15:50] LABS: CREATINE KINASE MB 189.9 ng/mL (0-3.6)
--- NOTE | 2017-05-12 15:53 | NUR ---
05/12/17 RD INITIAL ASSESSMENT COMPLETED. PLEASE REFER TO NUTRITION PROGRESS NOTES UNDER CARE ACTIVITY FOR ESTIMATED NUTRITIONAL NEEDS. RD RECOMMENDATIONS: 1- RECOMMEND CONTINUE CARDIAC DIET 2- FOLLOW UP 3-5 DAYS; MODERATE RISK DEMARCO CHOI MBA, RD
[2017-05-12 16:00] VITALS: BP 106/69
[2017-05-12 16:00] LABS: CKMB RELATIVE INDEX 1.5 (0.0-2.5)
--- NOTE | 2017-05-12 18:45 | NUR ---
PT KEPT CLEAN, DRY AND COMFORTABLE, NEEDS ATTENDED. WILL ENDORSE TO NEXT SHIFT, PT ON STABLE CONDITION, FOR CONTINUITY OF CARE.
--- NOTE | 2017-05-12 19:10 | NUR ---
RECEIVED REPORT FROM DAY SHIFT RN. PT IS A/OX4, ON ROOM AIR. PT HAS A LEFT AC 20G IV, INFUSING NS@60ML/HR, AND A HEPARIN DRIP ON THE LEFT FA 22G IV. SKIN INTACT. PT IS ON BEDREST. SAFETY PRECAUTIONS IN PLACE. UPDATED BOARD. DISCUSSED PLAN OF CARE WITH PT, PT VERBALIZED UNDERSTANDING. VITAL SIGNS WITHIN NORMAL LIMITS. VITAL SIGNS ARE WITHIN NORMAL LIMITS. PT IN STABLE CONDITION, NO SIGNS OF DISTRESS NOTED. BED IN LOW POSITION, CALL LIGHT WITHIN REACH. WILL CONTINUE TO MONITOR.
[2017-05-12 20:00] VITALS: BP 106/75
[2017-05-12] MEDS ORDERED: HYDROcodone/APAP 10/325 MG 1 TAB TAB PO SCH (20:16)
--- NOTE | 2017-05-12 20:40 | NUR ---
PT DECIDED TO LEAVE AMA. DR SPENCER TALKED TO PT, PT STILL INSISTED ON LEAVING AND SIGNED AMA FORM. REMOVED WU CATHETER, REMOVED 2 IV SITES AND HELD PRESSURE FOR A FEW MINUTES ON EACH UNTIL BLEEDING STOPPED, BOTH IV CATHETERS INTACT. REMOVED TELE MONITOR AND ARMBANDS. DR SPENCER SAID IT WAS OK TO MEDICATE PT FOR PAIN BEFORE HE LEFT, MEDICATED WITH NORCO AT 20:16. BEFORE LEAVING PT STATED "PAIN STILL THERE BUT GETTING BETTER." PT LEFT UNIT IN STABLE CONDITION IN WHEELCHAIR ACCOMPANIED BY RN AND FAMILY.
[2017-05-13 12:24] LABS: T4 (THYROXINE) 6.1 ug/dL (4.5-12.0)
== END 2017-05-12 20:40 | disposition left against medical advice (07) | DRG 280 ==
LOC: MED 18:22 → MTU 22:20
PROVIDERS: ADMIT Family Medicine Sports Medicine; ATTEND Family Medicine Sports Medicine
DX: I77.1 Stricture of artery (principal); I21.A1 Myocardial infarction type 2; I50.43 Acute on chronic combined systolic (congestive) and diastolic (congestive) heart failure; N17.0 Acute kidney failure with tubular necrosis; Z94.1 Heart transplant status; E44.0 Moderate protein-calorie malnutrition; I42.0 Dilated cardiomyopathy; E83.42 Hypomagnesemia; D64.9 Anemia, unspecified; B35.1 Tinea unguium; E78.5 Hyperlipidemia, unspecified; K21.9 Gastro-esophageal reflux disease without esophagitis; M54.31 Sciatica, right side; Z83.3 Family history of diabetes mellitus; Z82.49 Family history of ischemic heart disease and other diseases of the circulatory system
CPT/HCPCS: 36415; 51702; 71010; 72131; 73701; 80048; 80053; 80158; 81003; 82150; 82550; 82553; 83036; 83690; 83735; 83880; 84100; 84436; 84439; 84443; 84479; 84484; 85025; 85610; 85651; 85730; 86140; 87081; 93005; 93925; 93926; 93970; 96374; 96375; 99291; J1170; J1644; J1885; J1940; J2270; J2543; J3475; J7030; J7512; J7516; Q0092; Q9967